=== PATIENT | female | born 1985 | race Two or more races ===

== ENCOUNTER 2025-03-20 09:06 | Emergency (ER) | payer OTHER ==
[~2025-03-20] VITALS: Ht 170.2 cm; Wt 120.2 kg
[2025-03-20 10:42] LABS: BASO % 0.4 % (0.1-1.2); EOS # 0.19 (0.04-0.54); EOS % 2.7 % (0.7-7.0); LYMPH # 2.05 (1.18-3.74); LYMPH % 29.0 % (19.3-53.1); MEAN PLATELET VOLUME 10.70 fl (9.4-12.4); MONO # 0.63 (0.24-0.82); MONO % 8.9 % (4.7-12.5); NEUT # 4.11 (1.56-6.13); NEUT % 58.3 % (34.0-71.1); RED CELL DISTRIBUTION WIDTH 14.1 % (11.6-14.4)
[2025-03-20 11:02] LABS: COVID-19 AG NEGATIVE (NEGATIVE)
[2025-03-20 11:37] LABS: ALT/SGPT 60.0 U/L (12-78); AST/SGOT 43.0 U/L (15-37); BILIRUBIN TOTAL 0.27 mg/dL (0.3-1.2); BUN CREA RATIO 22.0 (7.0-25.0); CREATININE SERUM 0.6 mg/dL (0.55-1.02); GFR 109.63; GLOBULINA 3.7 G/DL (2.4-3.5); GLUCOSE FASTING 122.0 mg/dL (65-100); OSMOLALITY SERUM 285.0 MOSM/KG (275-295)
[2025-03-20 11:37] LABS: URINE APPEARANCE Clear; URINE BILIRRUBIN Negative (NEGATIVE); URINE BLOOD Negative; URINE COLOR Yellow; URINE GLUCOSE Negative (NEGATIVE); URINE KETONE Trace (NEGATIVE); URINE LEUKOCYTE Negative; URINE NITRATE Negative; URINE PROTEIN Negative (NEGATIVE); URINE UROBILINOGEN 1.0 E.U./dl
[2025-03-20 11:41] LABS: URINE BACTERIA 2339.9 uL (0.0-1933); URINE EPITHELIAL CELLS 36.2 uL (0.0-38.8); URINE RBC 29.4 uL (0.0-20.8); URINE WBC 13.9 uL (0.0-23.2)
[2025-03-20 11:55] LABS: TYPE CELLS SQUAMOUS; URINE CAST 0.00 uL (0.0-1.40); URINE YEAST FEW /hpf
== END 2025-03-20 12:37 | disposition home or self-care (01) ==
LOC: ER 09:13
PROVIDERS: General Practice
DX: R51.9 Headache, unspecified (principal); U09.9 Post COVID-19 condition, unspecified; Z20.822 Contact with and (suspected) exposure to COVID-19